=== PATIENT | male | born 1970 | race Caucasian/White ===

== ENCOUNTER 2018-01-11 05:14 | Inpatient (IN) | payer SELFPAY ==
[~2018-01-11] VITALS: Ht 170.2 cm; Wt 90.6 kg
[2018-01-11 06:27] LABS: Basophils # (auto) 0 uL; Basophils % (auto) 0.4 % (0.0-2.0); Eosinophils # (auto) 0 uL; Eosinophils % (auto) 0.1 % (0.0-7.0); Lymphocytes # (auto) 0.9 uL; Lymphocytes % (auto) 7.4 % (10.0-50.0); Mean Corpuscular Hemoglobin 29.6 pg (28.0-32.0); Mean Corpuscular Hgb Conc. 33.3 g/dL (32.0-36.0); Mean Corpuscular Volume 88.8 fL (80.0-100.0); Monocytes # (auto) 0.3 uL; Monocytes % (auto) 2.4 % (0.0-12.0); Neutrophils # (auto) 11.1 uL; Neutrophils % (auto) 89.7 % (37.0-80.0); Nucleated Red Blood Cells % 0.1 %; Platelet Count (auto) 378 10^3/uL (140-450); Red Cell Distribution Width 13.8 % (11.8-14.3); White Blood Cell 12.4 10^3/uL (4.4-10.8)
[2018-01-11 06:39] LABS: Albumin 4.2 g/dL (3.4-5.0); Calcium 9.8 mg/dL (8.5-10.1); Potassium 3.9 mmol/L (3.5-5.1)
[2018-01-11 06:41] LABS: BUN/Creatinine Ratio 18.2
[2018-01-11 06:44] LABS: Bilirubin, Total 0.7 mg/dL (0.2-1.0); Total Protein 7.9 g/dL (6.4-8.2)
[2018-01-11] MEDS ORDERED: PROMETHAZINE HCL 25 MG/ML 1ML IV ONE (08:00)
[2018-01-11] MEDS ORDERED: NALBUPHINE HCL 10 MG/1ml INJECTION IV ONE (08:00)
[2018-01-11] MEDS ORDERED: GASTROGRAFIN 120 ML SOL ONE (09:02)
[2018-01-11 12:11] LABS: Urine Amorphous Crystal MOD /hpf (None Seen); Urine Bacteria FEW /hpf (None Seen); Urine Blood Negative /uL (Negative); Urine Mucus FEW (None Seen); Urine Specific Gravity 1.031 (1.001-1.035); Urine WBC 1 /hpf (0 - 3)
[2018-01-11 12:26] LABS: Alcohol, Urine < 3.0 mg/dL (0-5); Amphetamine Screen, Urine POSITIVE (NEGATIVE); Barbiturate Scree,Urine NEGATIVE (NEGATIVE); Benzodiazephine Screen, Urine NEGATIVE (NEGATIVE); Cannabinoid Screen, Urine NEGATIVE (NEGATIVE); Cocaine Screen, Urine NEGATIVE (NEGATIVE); Opiate Scree,Urine NEGATIVE (NEGATIVE); Phencyclidine Screen, Urine NEGATIVE (NEGATIVE)
[2018-01-12] MEDS ORDERED: NICOTINE 21MG/24 HR TOPICAL PATCH TD ONE (10:15)
[2018-01-12] MEDS ORDERED: MORPHINE SULFATE 4 MG/ML SYR/VIAL IV PRN (10:15)
[2018-01-12] MEDS ORDERED: ONDANSETRON HCL 4 MG/2 ML VIAL IV PRN (10:15)
[2018-01-12] MEDS ORDERED: LORazepam 2MG/ML-1ML VIAL IV PRN (10:15)
[2018-01-12] MEDS ORDERED: PANTOPRAZOLE 40 MG/10 ML VIAL IV ONE (10:15)
[2018-01-12] MEDS ORDERED: LORazepam 2MG/ML-1ML VIAL IV ONE (10:15)
[2018-01-12] MEDS ORDERED: cefTRIAXone 1GM/10ml IVPUSH 10 ML IV ONE (10:15)
[2018-01-12] MEDS: SODIUM CHLORIDE 0.9% 1,000 ML IV SCH ×2 (10:50→18:15)
[2018-01-12 11:09] LABS: Basophils # (auto) 0.1 uL; Basophils % (auto) 0.9 % (0.0-2.0); Eosinophils # (auto) 0.3 uL; Hematocrit 49.5 % (41.0-53.0); Hemoglobin 16.5 g/dL (13.5-17.5); Lymphocytes # (auto) 2.7 uL; Lymphocytes % (auto) 35.5 % (10.0-50.0); Mean Corpuscular Hemoglobin 29.8 pg (28.0-32.0); Mean Corpuscular Hgb Conc. 33.2 g/dL (32.0-36.0); Mean Corpuscular Volume 89.5 fL (80.0-100.0); Monocytes # (auto) 0.7 uL; Monocytes % (auto) 8.9 % (0.0-12.0); Neutrophils # (auto) 3.8 uL; Neutrophils % (auto) 50.7 % (37.0-80.0); Platelet Count (auto) 352 10^3/uL (140-450); Red Blood Cells 5.53 10^6/uL (4.5-5.90); Red Cell Distribution Width 13.9 % (11.8-14.3); White Blood Cell 7.5 10^3/uL (4.4-10.8)
[2018-01-12 11:21] LABS: Albumin 3.7 g/dL (3.4-5.0); BUN/Creatinine Ratio 17.9; Bilirubin, Total 0.7 mg/dL (0.2-1.0); Calcium 8.7 mg/dL (8.5-10.1); Potassium 4.3 mmol/L (3.5-5.1); Total Protein 7.6 g/dL (6.4-8.2)
[2018-01-12 11:23] LABS: Cholesterol 180 mg/dL (< 200); HDL Cholesterol 51 mg/dL (40-59); INR 0.95 (0.9-1.15); LDL Cholesterol 119 mg/dL (< 100); Partial Thromboplastin Time 29.8 sec (22.64-33.71); Prothrombin Time 10.3 sec (9.37-12.3); Triglycerides 101 mg/dL (< 150)
[2018-01-12] MEDS: metroNIDAZOLE 500MG/100ML 100 ML IV SCH ×2 (12:06→20:21)
[2018-01-12 13:00] VITALS: BP 115/61
[2018-01-12] MEDS ORDERED: METOCLOPRAMIDE HCL 5MG/ml INJ 2ml VIAL IV SCH (14:00)
[2018-01-12] MEDS ORDERED: THIAMINE HCL 100 MG/ML 2ML VIAL IV ONE (14:30)
[2018-01-12 17:00] VITALS: BP 114/73
[2018-01-12 22:00] VITALS: BP 110/69
[2018-01-13] MEDS: metroNIDAZOLE 500MG/100ML 100 ML IV SCH (04:04)
[2018-01-13] MEDS: SODIUM CHLORIDE 0.9% 1,000 ML IV SCH ×2 (04:04→09:30)
[2018-01-13 05:00] VITALS: BP 106/63
[2018-01-13 07:11] LABS: Basophils # (auto) 0.1 uL; Eosinophils # (auto) 0.2 uL; Eosinophils % (auto) 3.9 % (0.0-7.0); Hematocrit 46.2 % (41.0-53.0); Lymphocytes # (auto) 1.7 uL; Mean Corpuscular Hemoglobin 29.3 pg (28.0-32.0); Mean Corpuscular Hgb Conc. 32.4 g/dL (32.0-36.0); Mean Corpuscular Volume 90.5 fL (80.0-100.0); Monocytes # (auto) 0.5 uL; Monocytes % (auto) 8.1 % (0.0-12.0); Neutrophils # (auto) 3.6 uL; Nucleated Red Blood Cells % 0.3 %; Platelet Count (auto) 303 10^3/uL (140-450); Red Blood Cells 5.11 10^6/uL (4.5-5.90); Red Cell Distribution Width 13.8 % (11.8-14.3); White Blood Cell 6.1 10^3/uL (4.4-10.8)
[2018-01-13 07:22] LABS: BUN/Creatinine Ratio 21.2; Calcium 8.2 mg/dL (8.5-10.1)
[2018-01-13 08:30] VITALS: BP 102/68
[2018-01-13 08:39] VITALS: BP 102/68
[2018-01-13] MEDS ORDERED: cefTRIAXone 1GM/10ml IVPUSH 10 ML IV SCH (09:00)
[2018-01-13] MEDS: NICOTINE 21MG/24 HR TOPICAL PATCH TD SCH (09:30)
[2018-01-13] MEDS: PANTOPRAZOLE 40 MG/10 ML VIAL IV SCH (09:30)
[2018-01-13] MEDS: THIAMINE HCL 100 MG/ML 2ML VIAL IV SCH (09:31)
[2018-01-13 13:03] VITALS: BP 115/74
[2018-01-13] MEDS ORDERED: ACETAMINOPHEN 650 mg PER 20 mL UD PO PRN (15:15)
[2018-01-13 16:57] VITALS: BP 103/70
[2018-01-13 22:00] VITALS: BP 126/77
[2018-01-14 06:00] VITALS: BP 108/69
[2018-01-14 07:03] LABS: Basophils # (auto) 0.1 uL; Basophils % (auto) 1.1 % (0.0-2.0); Eosinophils # (auto) 0.2 uL; Eosinophils % (auto) 3.9 % (0.0-7.0); Hematocrit 42.3 % (41.0-53.0); Hemoglobin 13.9 g/dL (13.5-17.5); Lymphocytes # (auto) 1.9 uL; Lymphocytes % (auto) 34.1 % (10.0-50.0); Mean Corpuscular Hemoglobin 29.1 pg (28.0-32.0); Mean Corpuscular Hgb Conc. 32.7 g/dL (32.0-36.0); Mean Corpuscular Volume 88.9 fL (80.0-100.0); Monocytes # (auto) 0.5 uL; Monocytes % (auto) 9.6 % (0.0-12.0); Neutrophils # (auto) 2.8 uL; Neutrophils % (auto) 51.3 % (37.0-80.0); Nucleated Red Blood Cells % 0.2 %; Platelet Count (auto) 306 10^3/uL (140-450); Red Blood Cells 4.76 10^6/uL (4.5-5.90); Red Cell Distribution Width 13.6 % (11.8-14.3); White Blood Cell 5.5 10^3/uL (4.4-10.8)
[2018-01-14 07:36] LABS: BUN/Creatinine Ratio 14.5; Calcium 8.6 mg/dL (8.5-10.1)
[2018-01-14 09:00] VITALS: BP 109/56
[2018-01-14] MEDS: THIAMINE HCL 100 MG/ML 2ML VIAL IV SCH (10:00)
[2018-01-14] MEDS: PANTOPRAZOLE 40 MG/10 ML VIAL IV SCH (10:28)
[2018-01-14] MEDS: NICOTINE 21MG/24 HR TOPICAL PATCH TD SCH (10:29)
[2018-01-14 13:00] VITALS: BP 114/63
[2018-01-14 17:00] VITALS: BP 113/73
[2018-01-14 22:00] VITALS: BP 115/74
[2018-01-15 05:15] VITALS: BP 114/64
[2018-01-15 07:16] LABS: Basophils # (auto) 0.1 uL; Basophils % (auto) 1.3 % (0.0-2.0); Eosinophils # (auto) 0.2 uL; Eosinophils % (auto) 3.6 % (0.0-7.0); Lymphocytes # (auto) 2.4 uL; Lymphocytes % (auto) 35.7 % (10.0-50.0); Mean Corpuscular Hemoglobin 29.8 pg (28.0-32.0); Mean Corpuscular Hgb Conc. 33.3 g/dL (32.0-36.0); Mean Corpuscular Volume 89.6 fL (80.0-100.0); Monocytes # (auto) 0.6 uL; Monocytes % (auto) 8.6 % (0.0-12.0); Neutrophils # (auto) 3.5 uL; Neutrophils % (auto) 50.8 % (37.0-80.0); Nucleated Red Blood Cells % 0.1 %; Platelet Count (auto) 303 10^3/uL (140-450); Red Blood Cells 4.69 10^6/uL (4.5-5.90); Red Cell Distribution Width 13.6 % (11.8-14.3); White Blood Cell 6.8 10^3/uL (4.4-10.8)
[2018-01-15 07:24] LABS: BUN/Creatinine Ratio 16.7; Calcium 8.5 mg/dL (8.5-10.1)
[2018-01-15 08:00] VITALS: BP 109/69
[2018-01-15 09:00] VITALS: BP 109/69
[2018-01-15] MEDS: THIAMINE HCL 100 MG/ML 2ML VIAL IV SCH (10:00)
[2018-01-15] MEDS: PANTOPRAZOLE 40 MG/10 ML VIAL IV SCH (10:05)
[2018-01-15] MEDS: NICOTINE 21MG/24 HR TOPICAL PATCH TD SCH (10:07)
== END 2018-01-15 13:25 | disposition home or self-care (01) | DRG 390 ==
LOC: ER 05:15 → OVERFLOW 01-12 05:16 → WEST WING 01-12 11:49
PROVIDERS: ADMIT Internal Medicine; ATTEND Internal Medicine
DX: K56.600 Partial intestinal obstruction, unspecified as to cause (principal); D72.829 Elevated white blood cell count, unspecified; E86.0 Dehydration; E78.5 Hyperlipidemia, unspecified; F15.10 Other stimulant abuse, uncomplicated; F17.210 Nicotine dependence, cigarettes, uncomplicated; I25.10 Atherosclerotic heart disease of native coronary artery without angina pectoris; Z82.49 Family history of ischemic heart disease and other diseases of the circulatory system; Z83.3 Family history of diabetes mellitus; Z80.0 Family history of malignant neoplasm of digestive organs
CPT/HCPCS: 36415; 74018; 74176; 74250; 80048; 80053; 80061; 80307; 81001; 82150; 83605; 83690; 85025; 85610; 85730; 93005; 96374; 96375; C9113; J3490

== ENCOUNTER 2022-01-05 12:29 | Inpatient (IN) | payer MEDICAID ==
[~2022-01-05] VITALS: Ht 170.2 cm; Wt 105.0 kg
[2022-01-05 13:59] LABS: Mean Corpuscular Hgb Conc. 33.4 g/dL (32.0-36.0)
[2022-01-05 14:00] LABS: Basophils # (auto) 0 10 ^3/uL (0-0.2); Basophils % (auto) 0.2 % (0.0-2.0); Eosinophils # (auto) 0.2 10 ^3/uL (0-0.8); Eosinophils % (auto) 1.5 % (0.0-7.0); Hematocrit 39.7 % (41.0-53.0); Hemoglobin 13.3 g/dL (13.5-17.5); Lymphocytes # (auto) 1.8 10 ^3/uL (0.4-5.4); Mean Corpuscular Hemoglobin 28.8 pg (28.0-32.0); Mean Corpuscular Volume 86.4 fL (80.0-100.0); Monocytes # (auto) 0.7 10 ^3/uL (0-1.3); Monocytes % (auto) 7.1 % (0.0-12.0); Neutrophils # (auto) 7.7 10 ^3/uL (1.6-8.6); Neutrophils % (auto) 74.2 % (37.0-80.0); Nucleated Red Blood Cells % 0.1 %; Red Blood Cells 4.59 10^6/uL (4.5-5.90); White Blood Cell 10.4 10^3/uL (4.4-10.8)
[2022-01-05 14:16] LABS: Albumin 2.2 g/dL (3.4-5.0); BUN/Creatinine Ratio 12.2; Calcium 8.8 mg/dL (8.5-10.1); Magnesium 2.1 mg/dL (1.6-2.6); Potassium 4.2 mmol/L (3.5-5.1)
[2022-01-05 14:21] LABS: Bilirubin, Total 0.3 mg/dL (0.2-1.0); Total Protein 7.5 g/dL (6.4-8.2)
[2022-01-05] MEDS ORDERED: KETOROLAC TROMETH 30 MG/ML 1ML VIAL IV ONE (16:00)
[2022-01-05] MEDS ORDERED: IOHEXOL 350 MG/ML 100ML IJ ONE (16:52)
[2022-01-05] MEDS ORDERED: DexAMETHasone SOD PHOS 10MG/1ML VIAL INJ IV ONE (18:45)
[2022-01-05] MEDS ORDERED: HYDROcodone-ACET 5/325MG TAB PO PRN (20:45)
[2022-01-05] MEDS ORDERED: NITROGLYCERIN 0.4 MG SL TAB SL PRN (20:45)
[2022-01-05] MEDS ORDERED: ONDANSETRON HCL 4 MG/2 ML VIAL IV PRN (20:45)
[2022-01-05] MEDS ORDERED: DOCUSATE SOD 100 MG CAP PO PRN (20:45)
[2022-01-05] MEDS ORDERED: MORPHINE SULFATE 4 MG/ML SYR/VIAL IV PRN (20:45)
[2022-01-05] MEDS ORDERED: MORPHINE SULFATE INJECTION 2 MG/ML SYRG IV PRN (20:45)
[2022-01-05] MEDS ORDERED: ACETAMINOPHEN 325 MG TAB PO PRN (20:45)
[2022-01-05 22:00] VITALS: BP 99/63
[2022-01-05] MEDS ORDERED: ENOXAPARIN SOD 100 MG/1 ML SYRINGE SC SCH (22:00)
[2022-01-05 22:58] VITALS: BP 99/63
[2022-01-05] MEDS: ENOXAPARIN SOD 100 MG/1 ML SYRINGE SC SCH (23:25)
[2022-01-05] MEDS: SODIUM CHLORIDE 0.9% 1,000 ML IV SCH (23:26)
[2022-01-06 05:00] VITALS: BP 102/51
[2022-01-06] MEDS: SODIUM CHLORIDE 0.9% 1,000 ML IV SCH ×2 (05:05→06:05)
[2022-01-06 06:00] LABS: Basophils # (auto) 0 10 ^3/uL (0-0.2); Eosinophils # (auto) 0 10 ^3/uL (0-0.8); Red Blood Cells 4.16 10^6/uL (4.5-5.90); Red Cell Distribution Width 13.6 % (11.8-14.3)
[2022-01-06 06:03] LABS: Basophils % (auto) 0.5 % (0.0-2.0); Hematocrit 35.9 % (41.0-53.0); Hemoglobin 12.1 g/dL (13.5-17.5); Lymphocytes # (auto) 1.2 10 ^3/uL (0.4-5.4); Lymphocytes % (auto) 13.6 % (10.0-50.0); Mean Corpuscular Hemoglobin 29.1 pg (28.0-32.0); Mean Corpuscular Hgb Conc. 33.7 g/dL (32.0-36.0); Mean Corpuscular Volume 86.1 fL (80.0-100.0); Monocytes # (auto) 0.5 10 ^3/uL (0-1.3); Monocytes % (auto) 5.2 % (0.0-12.0); Neutrophils # (auto) 7.2 10 ^3/uL (1.6-8.6); Neutrophils % (auto) 80.7 % (37.0-80.0); White Blood Cell 8.9 10^3/uL (4.4-10.8)
[2022-01-06 06:11] LABS: Potassium 4.7 mmol/L (3.5-5.1)
[2022-01-06 06:17] LABS: Albumin 2.1 g/dL (3.4-5.0); BUN/Creatinine Ratio 19.8
[2022-01-06 06:19] LABS: Bilirubin, Total 0.4 mg/dL (0.2-1.0); Total Protein 7.1 g/dL (6.4-8.2)
[2022-01-06 08:00] VITALS: BP 95/57
[2022-01-06] MEDS ORDERED: FAMOTIDINE 20 MG TAB PO SCH (10:00)
[2022-01-06] MEDS: ENOXAPARIN SOD 100 MG/1 ML SYRINGE SC SCH ×2 (10:06→22:11)
[2022-01-06] MEDS: NICOTINE 14 MG/24HR TOPICAL PATCH TD SCH (10:06)
[2022-01-06 12:00] VITALS: BP 100/57
[2022-01-06 16:00] VITALS: BP 117/53
[2022-01-06 22:00] VITALS: BP 91/55
[2022-01-06] MEDS: HYDROcodone-ACET 5/325MG TAB PO PRN (22:25)
[2022-01-06] MEDS ORDERED: MORPHINE SULFATE 4 MG/ML SYR/VIAL IV PRN (22:30)
[2022-01-06] MEDS ORDERED: ONDANSETRON HCL 4 MG/2 ML VIAL IV PRN (22:30)
[2022-01-06] MEDS ORDERED: ACETAMINOPHEN 325 MG TAB PO PRN (22:30)
[2022-01-06] MEDS ORDERED: MORPHINE SULFATE INJECTION 2 MG/ML SYRG IV PRN (22:30)
[2022-01-06] MEDS ORDERED: NITROGLYCERIN 0.4 MG SL TAB SL PRN (22:30)
[2022-01-06] MEDS ORDERED: DOCUSATE SOD 100 MG CAP PO PRN (22:30)
[2022-01-07 05:00] VITALS: BP 111/68
[2022-01-07] MEDS: HYDROcodone-ACET 5/325MG TAB PO PRN ×2 (07:26→20:08)
[2022-01-07 08:53] VITALS: BP 113/61
[2022-01-07] MEDS: FAMOTIDINE 20 MG TAB PO SCH (09:29)
[2022-01-07] MEDS: ENOXAPARIN SOD 100 MG/1 ML SYRINGE SC SCH ×2 (09:29→21:25)
[2022-01-07] MEDS: NICOTINE 14 MG/24HR TOPICAL PATCH TD SCH (09:31)
[2022-01-07] MEDS ORDERED: DexAMETHasone SOD PHOS 10MG/1ML VIAL INJ IV SCH ×2 (10:00)
[2022-01-07 12:15] VITALS: BP 108/69
[2022-01-07 23:02] VITALS: BP 109/66
[2022-01-08 04:42] VITALS: BP 85/52
[2022-01-08 07:19] LABS: Cholesterol 162 mg/dL (< 200); HDL Cholesterol 30 mg/dL (40-59); LDL Cholesterol 124 mg/dL (< 100); Triglycerides 91 mg/dL (< 150)
[2022-01-08 08:54] VITALS: BP 111/68
[2022-01-08] MEDS: FAMOTIDINE 20 MG TAB PO SCH (09:38)
[2022-01-08] MEDS: ENOXAPARIN SOD 100 MG/1 ML SYRINGE SC SCH (09:38)
[2022-01-08] MEDS: NICOTINE 14 MG/24HR TOPICAL PATCH TD SCH (09:38)
[2022-01-08] MEDS: HYDROcodone-ACET 5/325MG TAB PO PRN (09:40)
[2022-01-08 13:00] VITALS: BP 93/55
[2022-01-08] MEDS ORDERED: DOXYCYCLINE 100 MG TAB/CAP PO ONE (13:00)
[2022-01-08] MEDS ORDERED: DOX100T PO (15:33)
[2022-01-08] MEDS ORDERED: NICO14DI9 TD (15:33)
[2022-01-08] MEDS ORDERED: IBUP600T27 PO (15:33)
[2022-01-08] MEDS ORDERED: BACL20TA PO (15:33)
[2022-01-08 17:00] VITALS: BP 107/74
[2022-01-08] MEDS ORDERED: DOXYCYCLINE 100 MG TAB/CAP PO SCH (22:00)
== END 2022-01-08 19:50 | disposition home or self-care (01) | DRG 723 ==
LOC: ER 12:29 → TELE 20:31 → TELE-EAST 21:40 → EAST 01-08 12:59
PROVIDERS: ADMIT Internal Medicine; ATTEND Internal Medicine
DX: B34.9 Viral infection, unspecified (principal); E88.09 Other disorders of plasma-protein metabolism, not elsewhere classified; D75.839 Thrombocytosis, unspecified; E66.01 Morbid (severe) obesity due to excess calories; M54.2 Cervicalgia; M54.9 Dorsalgia, unspecified; R53.81 Other malaise; Z20.822 Contact with and (suspected) exposure to COVID-19; Z68.36 Body mass index [BMI] 36.0-36.9, adult; Z83.3 Family history of diabetes mellitus; Z80.9 Family history of malignant neoplasm, unspecified; F17.210 Nicotine dependence, cigarettes, uncomplicated; Z82.49 Family history of ischemic heart disease and other diseases of the circulatory system
CPT/HCPCS: 36415; 36600; 71045; 71275; 78582; 80053; 80061; 82550; 82805; 83735; 83880; 84484; 85025; 85379; 85652; 86141; 86738; 87040; 87278; 87804; 93005; 93306; 93970; 96374; 96375; 97163; G0378; J1100; J1885

== ENCOUNTER 2022-01-22 04:34 | Emergency (ER) | payer MEDICAID ==
[~2022-01-22] VITALS: Ht 175.3 cm; Wt 77.1 kg
[~2022-01-22 04:34] MED LIST: BACL20TA PO; DOX100T PO; IBUP600T27 PO; NICO14DI9 TD
[2022-01-22 08:26] LABS: Basophils # (auto) 0.1 10 ^3/uL (0-0.2); Eosinophils # (auto) 0.2 10 ^3/uL (0-0.8); Monocytes # (auto) 0.8 10 ^3/uL (0-1.3); Monocytes % (auto) 9.9 % (0.0-12.0); Nucleated Red Blood Cells % 0.1 %
[2022-01-22 08:27] LABS: Basophils % (auto) 0.9 % (0.0-2.0); Hematocrit 39.3 % (41.0-53.0); Hemoglobin 13.1 g/dL (13.5-17.5); Lymphocytes # (auto) 1.9 10 ^3/uL (0.4-5.4); Lymphocytes % (auto) 23.2 % (10.0-50.0); Mean Corpuscular Hemoglobin 28.5 pg (28.0-32.0); Mean Corpuscular Hgb Conc. 33.4 g/dL (32.0-36.0); Mean Corpuscular Volume 85.4 fL (80.0-100.0); Neutrophils # (auto) 5.2 10 ^3/uL (1.6-8.6); Red Blood Cells 4.61 10^6/uL (4.5-5.90); Red Cell Distribution Width 13.7 % (11.8-14.3); White Blood Cell 8.1 10^3/uL (4.4-10.8)
[2022-01-22 08:30] LABS: Albumin 2.4 g/dL (3.4-5.0); Calcium 8.9 mg/dL (8.5-10.1); Potassium 4.2 mmol/L (3.5-5.1)
[2022-01-22 08:34] LABS: BUN/Creatinine Ratio 17.2; Bilirubin, Total 0.2 mg/dL (0.2-1.0)
[2022-01-22] MEDS ORDERED: IOHEXOL 350 MG/ML 100ML IJ ONE (08:42)
[2022-01-22 10:41] LABS: Urine Bacteria FEW /hpf (None Seen); Urine Blood Negative /uL (Negative); Urine Mucus FEW (None Seen); Urine Specific Gravity 1.043 (1.001-1.035); Urine WBC <1 /hpf (0 - 3)
[2022-01-22 11:12] LABS: INR 0.99 (0.9-1.15); Partial Thromboplastin Time 30.3 sec (23.6-33.0)
[2022-01-22] MEDS ORDERED: IBUPROFEN 800 MG TAB PO ONE (12:30)
[2022-01-22 14:58] VITALS: BP 121/75
== END 2022-01-22 15:05 | disposition home or self-care (01) ==
LOC: EDBD 04:34 → ER 04:34
DX: R07.9 Chest pain, unspecified (principal); F17.210 Nicotine dependence, cigarettes, uncomplicated; Z79.1 Long term (current) use of non-steroidal anti-inflammatories (NSAID); Z79.2 Long term (current) use of antibiotics; Z79.899 Other long term (current) drug therapy
CPT/HCPCS: 36415; 71045; 71275; 80053; 81001; 83880; 84484; 85025; 85610; 85730; 93005; 99285; Q9967

== ENCOUNTER 2022-05-06 06:25 | Emergency (ER) | payer MEDICAID ==
[~2022-05-06] VITALS: Ht 170.2 cm; Wt 104.3 kg
[2022-05-06 07:19] LABS: Basophils # (auto) 0.1 10 ^3/uL (0-0.2); Basophils % (auto) 1.4 % (0.0-2.0); Eosinophils # (auto) 0.1 10 ^3/uL (0-0.8); Eosinophils % (auto) 1.6 % (0.0-7.0); Hematocrit 43.5 % (41.0-53.0); Hemoglobin 14.2 g/dL (13.5-17.5); Lymphocytes # (auto) 2.8 10 ^3/uL (0.4-5.4); Lymphocytes % (auto) 31.4 % (10.0-50.0); Mean Corpuscular Hemoglobin 27.9 pg (28.0-32.0); Mean Corpuscular Hgb Conc. 32.7 g/dL (32.0-36.0); Mean Corpuscular Volume 85.6 fL (80.0-100.0); Monocytes % (auto) 10.9 % (0.0-12.0); Neutrophils # (auto) 4.9 10 ^3/uL (1.6-8.6); Neutrophils % (auto) 54.7 % (37.0-80.0); Nucleated Red Blood Cells % 0.1 %; Red Blood Cells 5.08 10^6/uL (4.5-5.90); Red Cell Distribution Width 16.6 % (11.8-14.3); White Blood Cell 8.9 10^3/uL (4.4-10.8)
[2022-05-06 07:34] LABS: Albumin 2.4 g/dL (3.4-5.0); Calcium 8.5 mg/dL (8.5-10.1); Potassium 4.3 mmol/L (3.5-5.1)
[2022-05-06 07:37] LABS: BUN/Creatinine Ratio 11.2; Bilirubin, Total 0.4 mg/dL (0.2-1.0); Total Protein 8.4 g/dL (6.4-8.2)
[2022-05-06 10:01] VITALS: BP 140/92
== END 2022-05-06 10:00 | disposition home or self-care (01) ==
LOC: ER 06:25
DX: R07.89 Other chest pain (principal); E43 Unspecified severe protein-calorie malnutrition; F17.210 Nicotine dependence, cigarettes, uncomplicated; Z68.36 Body mass index [BMI] 36.0-36.9, adult
CPT/HCPCS: 36415; 71045; 80053; 84484; 85025; 93005

== ENCOUNTER 2023-02-10 17:36 | Emergency (ER) | payer MEDICAID ==
[~2023-02-10] VITALS: Ht 170.2 cm; Wt 91.7 kg
[2023-02-10 17:46] VITALS: BP 125/79
== END 2023-02-11 | disposition left against medical advice (07) ==
LOC: ER 17:36
DX: S80.262A Insect bite (nonvenomous), left knee, initial encounter (principal); Z53.21 Procedure and treatment not carried out due to patient leaving prior to being seen by health care provider; W57.XXXA Bitten or stung by nonvenomous insect and other nonvenomous arthropods, initial encounter; Y93.89 Activity, other specified; Y92.89 Other specified places as the place of occurrence of the external cause; Y99.8 Other external cause status

== ENCOUNTER 2024-09-05 20:35 | Inpatient (IN) | payer SELFPAY ==
[~2024-09-05] VITALS: Ht 170.2 cm; Wt 78.8 kg
[~2024-09-05 20:35] MED LIST changes: +IBUP-1454 PO; -IBUP600T27 PO
--- NOTE | 2024-09-05 20:52 | ECG ---
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
--- NOTE | 2024-09-05 20:53 | ED.PDOC ---
HPI Comments 54-year-old male with PMHx PE, MA presents with a chief complaint of chest pain x onset 3 hours ago with associated SOB. Patient states that his chest pain is localized to his sternal chest, non-radiating, describes as sharp. Patient mentions that he is a smoker and feels SOB right now, "like I can't catch my breath". EKG in triage shows Acute MA. EKG was sent to on-call STEMI provider and was confirmed. Code STEMI was activated. No other symptoms or modifying factors present at this time. Chief Complaint: Chest Pain Time Seen by MD: 20:42 Primary Care Provider: UNKNOWN Reviewed Notes: Medications, Allergies Allergies: Coded Allergies: NO KNOWN ALLERGIES (Unverified , 01/11/18) Home Meds Active Scripts Ibuprofen (Ibuprofen) 600 Mg Tab, 1 TAB PO TIDP PRN, #30 TAB 0 Refills TAKE WITH FOOD Prov:CLAUDIA LEVI MD 01/08/22 Baclofen (Baclofen) 20 Mg Tab, 1 TAB PO TIDP PRN, #20 TAB 0 Refills NEEDED FOR MUSCLE PAIN AND SPASM Prov:CLAUDIA LEVI MD 01/08/22 Nicotine (Nicotine) 14 Mg/24 Hr Dis, 1 PATCH TD DAILY for 14 Days, #14 DIS Prov:CLAUDIA LEVI MD 01/08/22 Doxycycline Monohydrate (Doxycycline Monohydrate) 100 Mg Tab, 100 MG PO Q12HR for 7 Days, #14 TAB Prov:CLAUDIA LEVI MD 01/08/22 Information Source: Patient Mode of Arrival: Ambulatory Severity: Moderate Timing: Hours Duration: Since onset Prehospital treatment: None Location: Chest (L) Radiation: No Radiation Quality: Sharp Onset: At Rest Cardiac Risk Factors: Smoker PE Risk Factors: None History of: Similar pain in past, MA Past Medical History PAST MEDICAL HISTORY: PE Surgical History: Denies all surgeries Family History Family History: Unknown Social History Smoker: Cigarettes Alcohol: Denies ETOH Use Drugs: Denies Drug Use Lives In: Home Constitutional: denies: chills, diaphoresis, fatigue, fever, malaise, sweats, weakness, others EENTM: denies: blurred vision, double vision, ear bleeding, ear discharge, ear drainage, ear pain, ear ringing, eye pain, eye redness, hearing loss, mouth pain, mouth swelling, nasal discharge, nose bleeding, nose congestion, nose pain, photophobia, tearing, throat pain, throat swelling, voice changes, others Respiratory: reports: shortness of breath; denies: cough, hemoptysis, orthopnea, SOB at rest, SOB with excertion, stridor, wheezing, others Cardiovascular: reports: chest pain; denies: dizzy spells, diaphoresis, Dyspnea on exertion, edema, irregular heart beat, left arm pain, lightheadedness, palpitations, PND, syncope, others Gastrointestinal: denies: abdomen distended, abdominal pain, blood streaked bowels, constipated, diarrhea, dysphagia, difficulty swallowing, hematemesis, melena, nausea, poor appetite, poor fluid intake, rectal bleeding, rectal pain, vomiting, others Genitourinary: denies: burning, dysuria, flank pain, frequency, hematuria, incontinence, penile discharge, penile sore, pain, testicle pain, testicle swelling, urgency, others Neurological: denies: dizziness, fainting, headache, left sided numbness, left sided weakness, numbness, paresthesia, pre-existing deficit, right sided numbness, right sided weakness, seizure, speech problems, tingling, tremors, weakness, others Musculoskeletal: denies: back pain, gout, joint pain, joint swelling, muscle pain, muscle stiffness, neck pain, others Integumetry: denies: bruises, change in color, change in hair/nails, dryness, laceration, lesions, lumps, rash, wounds, others Allergic/Immunocompromised: denies: Difficulty Healing, Frequent Infections, Hives, Itching, others Hematologic/Lymphatic: denies: anemia, blood clots, easy bleeding, easy bruising, swollen glands, others Endocrine: denies: excessive hunger, excessive sweating, excessive thirst, excessive urination, flushing, intolerance to cold, intolerance to heat, unexplained weight gain, unexplained weight loss, others Psychiatric: denies: anxiety, bipolar disorder, depression, hopeless, panic disorder, schizophrenia, sleepless, suicidal, others All Other Systems: Reviewed and Negative Physical Exam General Appearance: Moderate Distress, Normal HEENT: Normal ENT Inspection Neck: Full Range of Motion, Normal Inspection Respiratory: Lungs Clear, Normal Breath Sounds, Respiratory Distress Cardiovascular: No Edema, No JVD, Regular Rate/Rhythm Breast Exam: Deferred Gastrointestinal: Non Tender, Soft Genitalia: Deferred Pelvic: Deferred Rectal: Deferred Extremities: Normal inspection, Normal range of motion, Non-tender, No pedal edema Musculoskeletal : Apperance: Normal Neurologic: Alert, No Motor Deficits, Normal Affect, Normal Mood, No Sensory Deficits Cerebellar Function: NOT DONE Reflexes: NOT DONE Skin: Dry, Normal Color, Warm Lymphatic: NOT DONE EKG EKG : Comments Sinus tach, rate 101, normal intervals, left axis deviation, Q-waves with ST elevation in inferior leads ST depression in leads 1 and aVL consistent with acute inferior MA Was a procedure done? Was a procedure done?: No CP Differential Dx Differential Diagnosis: Angina, Anxiety / Panic Attack, Heart Failure, MA, Pulmonary Embolus Differential Diagnosis: CHF Differential Diagnosis: Aortic dissection, Chest Wall Pain, Gastritis, Pericarditis, Pneumonia, Pneumothorax X-Ray, Labs, Meds, VS Vital Signs Date Time Temp Pulse Resp B/P (MAP) Pulse Ox O2 Delivery O2 Flow Rate FiO2 09/06/24 00:15 80 17 117/86 (96) 97 09/06/24 00:00 98.2 82 16 130/90 (103) 97 98.2 09/05/24 23:45 78 21 127/91 (103) 97 09/05/24 23:30 77 21 120/82 (95) 97 09/05/24 23:15 97.6 75 19 123/88 (100) 97 97.6 09/05/24 21:06 131/95 09/05/24 20:40 101 09/05/24 20:40 98.4 105 24 131/100 (110) 95 Lab Test 09/05/24 21:00 09/05/24 20:46 Range/Units Prothrombin Time 9.9 9.3-11.8 sec Prothrombin Time INR 0.93 0.9-1.15 Activated Partial Thromboplast Time 28.0 24.5-34.5 SEC White Blood Count 10.4 4.4-10.8 10^3/uL Red Blood Count 5.30 4.5-5.90 10^6/uL Hemoglobin 16.1 13.5-17.5 g/dL Hematocrit 49.0 41.0-53.0 % Mean Corpuscular Volume 92.4 80.0-100.0 fL Mean Corpuscular Hemoglobin 30.4 28.0-32.0 pg Mean Corpuscular Hemoglobin Concent 32.9 32.0-36.0 g/dL Red Cell Distribution Width 14.3 11.8-14.3 % Platelet Count 279 140-450 10^3/uL Mean Platelet Volume 7.0 6.9-10.8 fL Neutrophils (%) (Auto) 59.6 37.0-80.0 % Lymphocytes (%) (Auto) 28.7 10.0-50.0 % Monocytes (%) (Auto) 10.0 0.0-12.0 % Eosinophils (%) (Auto) 1.3 0.0-7.0 % Basophils (%) (Auto) 0.4 0.0-2.0 % Neutrophils # (Auto) 6.2 1.6-8.6 10 ^3/uL Lymphocytes # (Auto) 3.0 0.4-5.4 10 ^3/uL Monocytes # (Auto) 1.0 0-1.3 10 ^3/uL Eosinophils # (Auto) 0.1 0-0.8 10 ^3/uL Basophils # (Auto) 0 0-0.2 10 ^3/uL Nucleated Red Blood Cells 0.3 % Sodium Level 135 L 136-145 mmol/L Potassium Level 4.5 3.5-5.1 mmol/L Chloride Level 106 98-107 mmol/L Carbon Dioxide Level 24 20-31 mmol/L Anion Gap 5 5-15 Blood Urea Nitrogen 7 L 9-23 mg/dL Creatinine 0.98 0.700-1.30 mg/dL Glomerular Filtration Rate Calc 92 >90 mL/min BUN/Creatinine Ratio 7.1 L 10.0-20.0 Serum Glucose 100 74-106 mg/dL Calcium Level 9.9 8.7-10.4 mg/dL Troponin I High Sensitivity 89267 *H </=54 ng/L B-Type Natriuretic Peptide 166.64 0-100 pg/mL Current Medications Medications (Trade) Dose Ordered Sig/Susannah Route Start Time Stop Time Status Last Admin Aspirin 325 mg ONCE ONCE PO 09/05/24 21:00 09/05/24 21:01 DC 09/05/24 21:06 Nitroglycerin (Nitro-Bid) 1 pkg ONCE ONCE TD 09/05/24 21:00 09/05/24 21:01 DC 09/05/24 21:06 PROCEDURE(s): CXRP - CHEST PORTABLE REASON: cp ORDER NUMBER(s): [id number], ACCESSION NUMBER(s): [id number] EXAM: XY CHEST PORTABLE CLINICAL HISTORY: cp TECHNIQUE: Single AP view of the chest WID: COMPARISON: CHEST PORTABLE on DOS: 05/06/22 FINDINGS: Lines and tubes: Defibrillator pad projects over the left chest. Chest: The heart size and pulmonary vasculature is within normal limits. No pleural effusion, pneumothorax, or consolidation. The osseous structures are grossly intact. IMPRESSION: No acute cardiopulmonary abnormality. X-Ray, Labs, Meds, VS Comment 54-year-old male with a history of PE complaining of chest pain and shortness a breath Vitals unremarkable Exam remarkable for respiratory distress EKG sinus rhythm, ST-elevation with Q-waves in inferior leads with ST depression in lateral leads consistent with acute MA Chest x-ray unremarkable CBC unremarkable, basic metabolic panel remarkable for sodium 134, coag panel unremarkable Troponin 49936 BNP [address] 66.[address] Hernandez on-call for STEMI. EKG was reviewed and code STEMI was activated. Patient was treated with the following in the ED: Aspirin 325 mg p.o., nitro bid 1 in to chest wall On re-evaluation, pain was improving, vitals were stable. Patient transferred to labor custodian in stable condition. Time of 1ST Reevaluation: 21:12 Reevaluation 1ST: Unchanged Patient Education/Counseling: Diagnosis, Treatment, Prognosis Family Education/Counseling: No Family Present Departure 1 Departure Time of Disposition: 21:42 Impression: Primary Impression: STEMI (ST elevation myocardial infarction) Qualified Codes: I21.11 - ST elevation (STEMI) myocardial infarction involving right coronary artery Disposition: ADMITTED INPATIENT Admit to: [facility] Condition: Guarded Critical Care Note Critical Care Time?: No Stability Stability form required: No Heart Score Heart Score: Heart Score Response (Comments) Value History Moderate Suspicious [address]-Deviation 2 Age 45-64 1 Risk Factors No known risk factors 0 Troponin >3 x's Normal limit 2 Total 6 I personally scribed for ALESSIA MCINTOSH MD ([email or web address]) on 09/05/24 at 20:53. Electronically submitted by Saravanan Medina ([email or web address]). ALESSIA MCINTOSH MD Sep 05, 2024 20:53
[2024-09-05 21:03] LABS: Basophils # (auto) 0 10 ^3/uL (0-0.2); Basophils % (auto) 0.4 % (0.0-2.0); Eosinophils # (auto) 0.1 10 ^3/uL (0-0.8); Eosinophils % (auto) 1.3 % (0.0-7.0); Hemoglobin 16.1 g/dL (13.5-17.5); Lymphocytes % (auto) 28.7 % (10.0-50.0); Mean Corpuscular Hemoglobin 30.4 pg (28.0-32.0); Mean Corpuscular Hgb Conc. 32.9 g/dL (32.0-36.0); Mean Corpuscular Volume 92.4 fL (80.0-100.0); Neutrophils # (auto) 6.2 10 ^3/uL (1.6-8.6); Neutrophils % (auto) 59.6 % (37.0-80.0); Nucleated Red Blood Cells % 0.3 %; Platelet Count (auto) 279 10^3/uL (140-450); Red Cell Distribution Width 14.3 % (11.8-14.3); White Blood Cell 10.4 10^3/uL (4.4-10.8)
[2024-09-05] MEDS: ASPirin 325 MG TAB PO ONE (21:06)
[2024-09-05] MEDS: NITROGLYCERIN 2% OINT 1GM PKG TD ONE (21:06)
[2024-09-05] MEDS: IODIXANOL 320MG/ML 100ML BTL IV ONE ×3 (21:23→22:41)
[2024-09-05] MEDS: LIDOCAINE 2%HCL (LOCAL ANESTH.) INJ 20ML MDV ONE (21:23)
[2024-09-05 21:26] LABS: Chloride 106 mmol/L (98-107); Potassium 4.5 mmol/L (3.5-5.1); Sodium 135 mmol/L (136-145)
[2024-09-05 21:27] LABS: Anion Gap 5 (5-15); Carbon Dioxide 24 mmol/L (20-31)
[2024-09-05 21:28] LABS: Calcium 9.9 mg/dL (8.7-10.4)
[2024-09-05 21:32] LABS: Glucose 100 mg/dL (74-106)
[2024-09-05 21:33] LABS: BUN/Creatinine Ratio 7.1 (10.0-20.0); Blood Urea Nitrogen 7 mg/dL (9-23)
[2024-09-05 21:34] LABS: INR 0.93 (0.9-1.15); Prothrombin Time 9.9 sec (9.3-11.8)
[2024-09-05] MEDS: MIDAZOLAM HCL 2MG/2ML 2ml VIAL (1mg/ml) ONE (21:39)
[2024-09-05] MEDS: VERAPAMIL 2.5MG/ML INJ 2ML VIAL IV ONE (21:39)
[2024-09-05] MEDS: fentaNYL CITRATE 100 MCG/2 ML VL ONE (21:39)
[2024-09-05] MEDS: ANGIOMAX 250 MG VIAL IV ONE ×2 (21:39→22:37)
[2024-09-05] MEDS: HEPARIN SODIUM (PORCINE) 5000 UNITS/ML 1ML VIAL ONE (21:39)
[2024-09-05] MEDS: SODIUM CHL 0.9% 50 ML ONE ×2 (21:40→22:37)
--- NOTE | 2024-09-05 21:42 | DVH ---
EXAM: XY CHEST PORTABLE CLINICAL HISTORY: cp TECHNIQUE: Single AP view of the chest WID: COMPARISON: CHEST PORTABLE on DOS: 05/06/22 FINDINGS: Lines and tubes: Defibrillator pad projects over the left chest. Chest: The heart size and pulmonary vasculature is within normal limits. No pleural effusion, pneumothorax, or consolidation. The osseous structures are grossly intact. IMPRESSION: No acute cardiopulmonary abnormality.
[2024-09-05] MEDS: ATROPINE SULF 1 MG/10ml SYR ONE (21:55)
[2024-09-05] MEDS: EPTIFIBATIDE INJ (2MG/ML) 10ML VIAL IV ONE ×2 (22:10→22:21)
[2024-09-05] MEDS: methylPREDNISolone SOD SUCC 125 MG/2 ML VL ONE (22:32)
[2024-09-05] MEDS: CLOPIDOGREL BISULFATE 75 MG TAB ONE (22:55)
[2024-09-05 23:15] VITALS: BP 123/88; PULSE 75; RESP 19; TEMP 97.6; O2SAT 97
--- NOTE | 2024-09-05 23:15 | DVHINCON2 ---
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 He describes a pressure-like sensation in the center of the chest that he can not catch his breath anymore. He is a heavy smoker, he denied history of diabetes mellitus or hyperlipidemia. However he has a family history of coronary artery disease. As well as diabetes mellitus. EKG in the emergency room shows ST elevations in two three AVF with Q-wave. Indicating likely a subacute myocardial infarction. Given patient's symptoms and EKG changes he was rushed to the flue dust laborer for primary PCI to the culprit vessel Past Medical History History of pulmonary embolism a couple units ago. Past Surgical History Twelve point review of system was unremarkable Family History: Cardiovascular disease Grandfather ( from heart attack) G8 BROTHER Colon cancer G8 FATHER Diabetes mellitus G8 MOTHER FH: cancer Hypertension G8 BROTHER Allergies: Coded Allergies: NO KNOWN ALLERGIES (Unverified , 01/11/18) Home Meds Active Scripts Ibuprofen (Ibuprofen) 600 Mg Tab, 1 TAB PO TIDP PRN, #30 TAB 0 Refills TAKE WITH FOOD Prov:CLAUDIA LEVI MD 01/08/22 Baclofen (Baclofen) 20 Mg Tab, 1 TAB PO TIDP PRN, #20 TAB 0 Refills NEEDED FOR MUSCLE PAIN AND SPASM Prov:CLAUDIA LEVI MD 01/08/22 Nicotine (Nicotine) 14 Mg/24 Hr Dis, 1 PATCH TD DAILY for 14 Days, #14 DIS Prov:CLAUDIA LEVI MD 01/08/22 Doxycycline Monohydrate (Doxycycline Monohydrate) 100 Mg Tab, 100 MG PO Q12HR for 7 Days, #14 TAB Prov:CLAUDIA LEVI MD 01/08/22 Vital Signs Vital Signs Date Time Temp Pulse Resp B/P (MAP) Pulse Ox O2 Delivery O2 Flow Rate FiO2 09/05/24 21:06 131/95 09/05/24 20:40 101 09/05/24 20:40 98.4 24 95 Physical Exam Patient looked anxious, normal vitals with heart rate of 88 blood pressure was 1 40/85 with no radial radial or radial femoral delay. Has normal versus other SI with audible murmur he has good symmetrical peripheral pulses. No radial radial or radial femoral delay. His overall neurological examination is grossly block. We will decrease air entry in both lung romero. Labs/Diagnostic Data Labs Test 09/05/24 21:00 09/05/24 20:46 Range/Units Prothrombin Time 9.9 9.3-11.8 sec Prothrombin Time INR 0.93 0.9-1.15 Activated Partial Thromboplast Time 28.0 24.5-34.5 SEC White Blood Count 10.4 4.4-10.8 10^3/uL Red Blood Count 5.30 4.5-5.90 10^6/uL Hemoglobin 16.1 13.5-17.5 g/dL Hematocrit 49.0 41.0-53.0 % Mean Corpuscular Volume 92.4 80.0-100.0 fL Mean Corpuscular Hemoglobin 30.4 28.0-32.0 pg Mean Corpuscular Hemoglobin Concent 32.9 32.0-36.0 g/dL Red Cell Distribution Width 14.3 11.8-14.3 % Platelet Count 279 140-450 10^3/uL Mean Platelet Volume 7.0 6.9-10.8 fL Neutrophils (%) (Auto) 59.6 37.0-80.0 % Lymphocytes (%) (Auto) 28.7 10.0-50.0 % Monocytes (%) (Auto) 10.0 0.0-12.0 % Eosinophils (%) (Auto) 1.3 0.0-7.0 % Basophils (%) (Auto) 0.4 0.0-2.0 % Neutrophils # (Auto) 6.2 1.6-8.6 10 ^3/uL Lymphocytes # (Auto) 3.0 0.4-5.4 10 ^3/uL Monocytes # (Auto) 1.0 0-1.3 10 ^3/uL Eosinophils # (Auto) 0.1 0-0.8 10 ^3/uL Basophils # (Auto) 0 0-0.2 10 ^3/uL Nucleated Red Blood Cells 0.3 % Sodium Level 135 L 136-145 mmol/L Potassium Level 4.5 3.5-5.1 mmol/L Chloride Level 106 98-107 mmol/L Carbon Dioxide Level 24 20-31 mmol/L Anion Gap 5 5-15 Blood Urea Nitrogen 7 L 9-23 mg/dL Creatinine 0.98 0.700-1.30 mg/dL Glomerular Filtration Rate Calc 92 >90 mL/min BUN/Creatinine Ratio 7.1 L 10.0-20.0 Serum Glucose 100 74-106 mg/dL Calcium Level 9.9 8.7-10.4 mg/dL Troponin I High Sensitivity 35237 *H </=54 ng/L B-Type Natriuretic Peptide 166.64 0-100 pg/mL Assessment inferior ST-elevation myocardial infarction likely subacute leaving the presence of Q-wave all the time of presentation. Cord stimulator activated by she was rushed to the flue dust laborer for emergency PCI to the right coronary artery. Total critical time spent with patient 135 minutes Problems(with codes): (1) Tachycardia (2) Chest pain (3) Needs smoking cessation education (4) Family history of diabetes mellitus (5) Family history of colon cancer (6) Family history of cardiovascular disease Plan/Recommendation Patient needs to be rushed to the flue dust laborer for primary PCI he will receive loading dose L4 symptoms 2 mg of aspirin in addition to the 100 mg of Plavix and 4000 of heparin. Plan discussed with: Patient Date of Service: Sep 05, 2024 Billing Provider: LIMA MCCLURE MD Common Visit Codes: 15564-[id number] CARE 30-74 MIN LIMA MCCLURE MD Sep 05, 2024 23:15
[2024-09-05 23:30] VITALS: BP 120/82; PULSE 77; RESP 21; O2SAT 97
--- NOTE | 2024-09-05 23:37 | DVHOP2 ---
Operative Report -Cardiology Report Details Date: 09/05/24 Preop Diagnosis: Acute inferior ST-elevation myocardial infarction Postop Diagnosis: Patient has totally occluded proximal to mid right coronary artery. Lightheaded coupled with the patient presentation. Patient underwent primary PCI of the right coronary artery with single drug-eluting stent. Procedure was very challenging due to vertical takeoff of the right coronary artery with stents have tortuosity. Multiple guiding catheter exchanges were made we had difficulty advancing the. Number as well as the med with lobectomy catheters eventually we will angiogram on intracoronary to try to reduce thrombus burden. Finally patient was successfully stented using 3.5 x 38 drug-eluting stent with excellent final result. Patient has also a staged procedure that was done at the same set up you to severe tight stenosis of proximal LAD single stent of the 5 x 15 was used with excellent final result. Surgeon: Jocelin Hernandez MD Anesthesiologist: Conscious sedation was at 25 mcg of fentanyl as well as 1 mg of the midazolam. This was given under the supervision of myself as well as the attending nurses. Patient was monitored for total of 135 minutes without obvious complication. Anesthesia: Local Consent: The patient was informed of the risks and benefits of the procedure. These in clude but are not limited to complications of anesthesia, postoperative infection, incomplete relief of symptoms, recurrence of symptoms, damage to blood vessels, nerves and tendons, deep venous thrombosis, pulmonary embolism and possible need for repeat surgery in the future. Indications for Surgery: This is a 54-year-old gentleman with no past history apart from history of pulmonary embolism a couple years ago. He presented to emergency room complaining of crushing chest pain with a past 3 hours prior to his presentation. He described having difficulty catching his breath and then he felt central heaviness in his chest before he was rushed to the emergency room. In the emergency room he was found to have acute inferior ST-elevation myocardial infarction involving two three and AVF leads, there was Q-wave across these leads indicating subacute presentation. Code STEMI was activated and patient was rushed to the helper animal laboratory for emergency PCI of the culprit vessel. Patient denies history of diabetes mellitus, hypertension hyperlipidemia, has a family history of diabetes mellitus as well as called cancer. Name of Procedure Performed 1. Ultrasound-guided right femoral arterial access. 2. Selective right and left carotid angiography with rising right radial approach: 3. Primary PCI of the culprit right coronary artery using single drug-eluting stent. 4. Bail-out administration of Integrilin intracoronary due to large clot burden and difficulty to advance the manual thrombectomy devices. 5. Conscious sedation using 25 mcg of fentanyl as well as the mg of IV midazolam. 6. Staged procedure of proximal to mid LAD stenosis using single drug-eluting stent 7. Closure of the right femoral arteriotomy side using six Guyanese Angio-Seal. Procedure Details Procedure Details: Procedure note and vascular access: After informed consent was obtained, risks, benefits, complications, and alternatives were discussed in details with patient who agrees other procedure done. At the beginning of the procedure, the right wrist in the right groin Gupta prepped and draped with the regular sterile fashion. She received conscious sedation by a given 25 mcg of fentanyl as well as 1 mg of IV midazolam. He received a total of 2 cc of 1% xylocaine to the right wrist area an attempt right radial access had failed due to severe vasospasm difficult to thread the wire. Severe was admitted vascular access was switched to the right femoral artery. Under ultrasound guidance, we are able to identify the common femoral artery on the right side, this was punctured under ultrasound guidance with micropuncture needle followed by placement of five Guyanese sheath before it was exchanged for a six Guyanese sheath over the wire using with a false a digital technique without difficulty. Confirmation of the position was obtained using cine femoral angiography. Which confirmed the puncture site above the bifurcation. Pre shaped catheter of Vear left, as with a Vera right were used, did they were exchanged for a multipurpose guiding catheter as well as a Vera left guiding catheter for the right and left coronary system respectively. Findings were as follows: 1. Selective right and left coronary angiogram utilizing right femoral artery: 1. Right carotid with comes off the right coronary cusp has a vertical takeoff, making it difficult to be engaged with distal right catheter, for the purpose of angioplasty we used a multipurpose MPA one guiding catheter. Right coronary artery is large ectatic it is dominant system it has proximal to mid total occlusion. Likely the culprit with the patient presentation. 2. Left main comes off the left coronary cusp is short and largest bifurcates until large with a heated descending artery as well as medium sized lymphs a complex vessel. The left main is free of any significant atherosclerotic plaquing. 3. The left anterior descending without GH large vessel two large diagonal branches, I its proximal thigh that is tight focal 90% stenosis. There is no other significant disease noted in the LAD territory. 4. The left circumflex system is medium to large in size likely a codominant system it gives rise to two obtuse marginal branches as well as small posterolateral branches, it has mild atherosclerotic plaquing in its proximal bed without significant stenosis. \ Primary PCI to the right coronary artery: The Vera right gain ox did catheter was exchanged for a multipurpose MPA one guiding catheter, after engaging the right coronary ostium, we are able to float a C-arm blue wire with some difficulty, as the vessel is very tortuous. Finally we opted to switch to choice PT extra-support wire, following which we will place a 2nd C-arm blue wire then were able to dilate the lesion multiple goal times using 2.25 x 15 semi compliant balloon all the way to 12 atmospheric pressure in at least three different spots. With the re-establishment of DANAY one flow. From DANAY 0 flow. However we could not advance manual thrombectomy devices including penumbra an export catheter, finally we used intra-arterial Integrilin administration with some help to restore flow. Before we stented the lesion using the 0.5 x 30 drug-eluting stents. Excellent final result is achieved with DANAY three flow. Stage PCI to the left anterior descending proximal to mid lesion the same set up : After finishing the artery occlusion and placement of stents successfully, I want dentition was drawn to the proximal to mid left anterior descending artery stenosis I Vera left guiding catheter was used, the same serum no wire was used to engage the left system, it was pre-dilated using 2.25 x 15 balloon and then stented using 3.5 x 15 drug-eluting stent with excellent final result. Cine Angiography to the femoral artery on the right side: With the valve the position of the right femoral arteriotomy site Barker Angiography with shows that the puncture site is above the bifurcation Six Guyanese Angio-Seal closure to the right femoral arteriotomy site: It was difficult to advance the Angio-Seal over a regular wire, a two severe pannus and obesity, we then opted to use a dilator and stiff Amplatzer wire with a floppy tip was used for Angio-Seal six Guyanese system was advanced with successful placement of the vascular blood with good hemostasis and minimal complication. Antiplatelet and anticoagulation during the procedure: Patient receive a loading dose of 600 Plavix, in addition to us as a dual mg of aspirin, it received bivalirudin continuous intravenous infusion during the procedure for anticoagulation, receive Integrilin as a bail-out intra-arterially due to large clot burden. Impression and plan: 1.Subacute presentation of a tooth inferior ST-elevation myocardial infarction, with successful implantation of single drug-eluting stent to the proximal right coronary artery. 2. Staged PCI to the left anterior descending artery with single drug-eluting stent. 3. Patient would need aggressive medical therapy with statins to achieve LDL target of less than 50 mg/dL addition to dual antiplatelet therapy long-term. 4. An echocardiogram it is essential to assess left ventricular systolic function and to proceed with GDMT Condition Good Dominance Dominance: Co-dominant DANAY DANAY Flow: Post- Intervention (DANAY-3), Pre-Intervention (DANAY-0) Lesion Lesion Complexity: High/C Residual Stenosis post procedu: 0% Disposition JOCELIN HERNANDEZ MD Sep 05, 2024 23:37
[2024-09-05 23:45] VITALS: BP 127/91; PULSE 78; RESP 21; O2SAT 97
[2024-09-06] VITALS (18 sets, daily range): BP systolic 104–137; BP diastolic 64–96; PULSE 75–96; RESP 15–20; TEMP 97.6–98.5; O2SAT 93–98
[2024-09-06] MEDS ORDERED: NITROGLYCERIN 0.4 MG SL TAB SL PRN (00:30)
[2024-09-06] MEDS ORDERED: MORPHINE SULFATE INJ 2 MG/ml SYRG IV PRN (00:30)
[2024-09-06] MEDS: SODIUM CHLORIDE 0.9% 1,000 ML IV ONE (00:58)
[2024-09-06] MEDS ORDERED: ONDANSETRON HCL 4 MG/2 ML VIAL IV PRN (04:00)
[2024-09-06 06:24] LABS: Urine Bacteria None Seen /hpf (None Seen); Urine Blood Negative /uL (Negative); Urine Clarity Clear (Clear); Urine Color Light-Yellow (Yellow); Urine Protein, UAD Negative (Negative); Urine Specific Gravity 1.032 (1.001-1.035); Urine Urobilinogen Normal (Negative); Urine WBC <1 /hpf (0 - 3); Urine pH 6.5 (5.0-9.0)
[2024-09-06] MEDS ORDERED: hydrALAZINE HCL 20 MG/ML VL IV PRN (08:30)
[2024-09-06] MEDS: ASPirin 81 mg TAB PO SCH (08:58)
[2024-09-06] MEDS: CLOPIDOGREL BISULFATE 75 MG TAB PO SCH (08:58)
[2024-09-06] MEDS: METOPROLOL SUCCINATE XL 50 MG TAB PO SCH (08:58)
[2024-09-06] MEDS: NICOTINE 14 MG/24HR TOPICAL PATCH TD SCH (08:59)
[2024-09-06 09:43] LABS: Basophils # (auto) 0 10 ^3/uL (0-0.2); Basophils % (auto) 0.1 % (0.0-2.0); Eosinophils # (auto) 0 10 ^3/uL (0-0.8); Hematocrit 42.1 % (41.0-53.0); Hemoglobin 13.9 g/dL (13.5-17.5); Lymphocytes # (auto) 0.9 10 ^3/uL (0.4-5.4); Lymphocytes % (auto) 9.3 % (10.0-50.0); Mean Corpuscular Hemoglobin 30.3 pg (28.0-32.0); Mean Corpuscular Volume 91.7 fL (80.0-100.0); Monocytes # (auto) 0.2 10 ^3/uL (0-1.3); Monocytes % (auto) 2.5 % (0.0-12.0); Neutrophils # (auto) 8.1 10 ^3/uL (1.6-8.6); Neutrophils % (auto) 88.1 % (37.0-80.0); Platelet Count (auto) 302 10^3/uL (140-450); Red Blood Cells 4.58 10^6/uL (4.5-5.90); Red Cell Distribution Width 14.1 % (11.8-14.3); White Blood Cell 9.2 10^3/uL (4.4-10.8)
[2024-09-06 09:50] LABS: Alanine Aminotransferase 47 U/L (7-40); Albumin 3.9 g/dL (3.2-4.8); Alkaline Phosphatase 83 U/L (46-116); Anion Gap 5 (5-15); Aspartate Aminotransferase 159 U/L (13-40); BUN/Creatinine Ratio 9.2 (10.0-20.0); Blood Urea Nitrogen 10 mg/dL (9-23); Calcium 9.4 mg/dL (8.7-10.4); Carbon Dioxide 25 mmol/L (20-31); Chloride 107 mmol/L (98-107); Cholesterol 166 mg/dL (< 200); HDL Cholesterol 43 mg/dL (40-59); LDL Cholesterol 119 mg/dL (< 100); Magnesium 1.8 mg/dL (1.6-2.6); Potassium 4.6 mmol/L (3.5-5.1); Sodium 137 mmol/L (136-145); Triglycerides 62 mg/dL (< 150)
[2024-09-06 09:51] LABS: Bilirubin, Total 0.6 mg/dL (0.2-1.0); Total Protein 6.9 g/dL (5.7-8.2)
[2024-09-06 10:00] LABS: Glucose 251 mg/dL (74-106)
[2024-09-06] MEDS ORDERED: ASPirin 81 mg TAB PO SCH (10:00)
--- NOTE | 2024-09-06 10:26 | DVHPN2 ---
Consult Progress Note Date Seen: Sep 06, 2024 Subjective Review of Systems: CVS:Normal, RESPIRATORY:Normal Objective vital signs Vital Sign Date Time Temp Pulse Resp B/P (MAP) Pulse Ox O2 Delivery O2 Flow Rate FiO2 09/06/24 09:00 97.8 93 19 117/69 (85) 98 97.8 09/06/24 01:29 Nasal Cannula* 2 28 Total Intake and Output 09/05/24 09/05/24 09/06/24 15:00 23:00 07:00 Intake Total 700 ml Output Total 1100 ml Balance -400 ml medications Current Medications Medications Dose Ordered Sig/Susannah Route Start Time Stop Time Status Last Admin Dose Admin Nitroglycerin 0.4 mg Q5MINP PRN SL 09/06/24 00:30 Morphine Sulfate 2 mg Q30M PRN IV 09/06/24 00:30 Ondansetron HCl 4 mg Q4HP PRN IV 09/06/24 04:00 Acetaminophen 650 mg Q6HP PRN PO 09/06/24 04:00 Atorvastatin Calcium 40 mg HS PO 09/06/24 22:00 Clopidogrel Bisulfate 75 mg DAILY PO 09/06/24 10:00 09/06/24 08:58 75 MG Metoprolol Succinate 25 mg DAILY PO 09/06/24 10:00 09/06/24 08:58 25 MG Hydralazine HCl 10 mg Q6HP PRN IV 09/06/24 08:30 Nicotine 1 patch DAILY TD 09/06/24 10:00 09/06/24 08:59 1 PATCH Aspirin 81 mg DAILY PO 09/06/24 10:00 09/06/24 08:58 81 MG Examination: LUNGS:Normal, CVS:Normal, NEURO:Normal laboratory and microbiology Laboratory Tests 09/06/24 09:22 Test 09/06/24 09:22 Range/Units Serum Glucose 251 #H 74-106 mg/dL Problem List/Assessment/Plan Problem List/Assessment/Plan Evolved inferior wall ST-elevation myocardial infarction Coronary artery disease status post PCI to the proximal RCA x 1 CARLA Dyslipidemia, newly diagnosed Family hx of cardiovascular disease Nicotine dependence Sedentary lifestyle Obesity Plan/Recommendation (Dr. Mcclure) * Echocardiogram to evaluate cardiac function * Lipid-lowering agent, beta-carlton, & DAPT with Plavix uninterrupted x 1 year * Smoking cessation consult. 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 Smokes a pack of cigarettes/day * Tobacco use cessation, Mediterranean diet, exercise, weight loss * Regular follow-ups with PCP (last >20 years ago). Follow-up with Cardiology within 1-2 weeks post-discharge * HgbA1C pending Thank you for allowing us to care for this patient. Kindly call with any questions or concerns. Plan discussed with: Patient, Other Date of Service: Sep 06, 2024 Billing Provider: LIMA MCCLURE MD Cardiology Common Codes: [id number] [facility](High [facility] Sep 06, 2024 10:25
[2024-09-06] MEDS: MAGNESIUM OXIDE 400 MG TAB PO ONE (10:54)
--- NOTE | 2024-09-06 11:33 | DVHHP2 ---
History of Present Illness Reason for Visit: chest pain History of Present Illness This is a 54 years old male with past medical history pulmonary embolism come to emergency department because of chest pain for one day. He said his chest pain feels like pressure chest pain in the middle of his chest. The pain is nonradiating. Grade 5 over 10. The patient did not take any medication to relieve the pain syndrome. He also had shortness for breath . The patient feels like he can not breathe. The patient has smoked two pack per day for almost 30 years. EKG in emergency department showed ST elevation on AVF . The patient was brought to the chemical laboratory technician emergently in PCI and one stent was placed on the right coronary artery. When I see the patient after the cardiac catheterization the patient is still complained of chest heaviness and pain. Patient is still complained of minimal shortness for breath. Denied fever, chill. Denied headache, per vision. Denied abdominal pain, constipation, diarrhea. Denied melena or bright red blood per rectum. Denied polyuria, dysur ia, or polyuria. Denied lower extremity edema. Denied nocturnal dyspnea or orthopnea. Pulmonary: Pulmonary embolus Family History: CAD, DM, Other (Colon cancer) Smoke: 2 packs per day ALCOHOL: occassional Drugs: None Lives: with Family Review of Systems Constitutional: No: Fever, Chills, Sweats, Weakness, Malaise, Other Eyes: No: Pain, Vision change, Conjunctivae inflammation, Eyelid inflammation, Other, Redness ENT: No: Ear pain, Ear discharge, Nose pain, Nose discharge, Nose congestion, Mouth pain, Mouth swelling, Throat pain, Throat swelling, Other Respiratory: Shortness of breath; No: Cough, Dry, Wheezing, Hemoptysis, Pleuritic Pain, Sputum, Wheezing, Other Cardiovascular: Chest Pain Gastrointestinal: No: Nausea, Vomiting, Abdominal Pain, Diarrhea, Constipation, Melena, Hematochezia, Other Genitourinary: No Dysuria, No Frequency, No Incontinence, No Hematuria, No Retention, No Other Musculoskeletal: No: other, neck pain, shoulder pain, arm pain, back pain, hand pain, leg pain, foot pain Skin: No: Rash, Lesions, Jaundice, Bruising, Other Neurological: No: Weakness, Numbness, Incoordination, Change in speech, Confusion, Seizures, Other Allergies: Coded Allergies: NO KNOWN ALLERGIES (Unverified , 01/11/18) Medications Current Medications Medications Dose Ordered Sig/Susannah Route Start Time Stop Time Status Last Admin Dose Admin Nitroglycerin 0.4 mg Q5MINP PRN SL 09/06/24 00:30 Morphine Sulfate 2 mg Q30M PRN IV 09/06/24 00:30 Ondansetron HCl 4 mg Q4HP PRN IV 09/06/24 04:00 Acetaminophen 650 mg Q6HP PRN PO 09/06/24 04:00 Atorvastatin Calcium 40 mg HS PO 09/06/24 22:00 Clopidogrel Bisulfate 75 mg DAILY PO 09/06/24 10:00 09/06/24 08:58 75 MG Metoprolol Succinate 25 mg DAILY PO 09/06/24 10:00 09/06/24 08:58 25 MG Hydralazine HCl 10 mg Q6HP PRN IV 09/06/24 08:30 Nicotine 1 patch DAILY TD 09/06/24 10:00 09/06/24 08:59 1 PATCH Aspirin 81 mg DAILY PO 09/06/24 10:00 09/06/24 08:58 81 MG Exam Vital Signs Vital Signs Date Time Temp Pulse Resp B/P (MAP) Pulse Ox O2 Delivery O2 Flow Rate FiO2 09/06/24 09:00 97.8 93 19 117/69 (85) 98 97.8 09/06/24 01:29 Nasal Cannula* 2 28 General Appearance: Alert, Oriented X3, Cooperative HEENT: Atraumatic, PERRLA, EOMI, Mucous membr. moist/pink Respiratory: Clear to auscultation, Normal air movement Cardiovascular: Regular rate, Normal S1, Normal S2, No murmurs, Gallops, Rubs Abdominal: Normal bowel sounds, Soft, No tenderness, No hepatospenomegaly Extremities: No clubbing, No cyanosis, No edema, Normal pulses, No tenderness/swelling Skin: No rashes, No significant lesion Neuro: Strength at 5/5 X4 ext, Cranial nerves 3-12 NL Psych/Mental Status: Mental status NL Labs/Xrays Labs Test 09/06/24 09:22 09/06/24 05:45 09/05/24 21:00 09/05/24 20:46 Range/Units White Blood Count 9.2 4.4-10.8 10^3/uL Red Blood Count 4.58 4.5-5.90 10^6/uL Hemoglobin 13.9 13.5-17.5 g/dL Hematocrit 42.1 # 41.0-53.0 % Mean Corpuscular Volume 91.7 80.0-100.0 fL Mean Corpuscular Hemoglobin 30.3 28.0-32.0 pg Mean Corpuscular Hemoglobin Concent 33.0 32.0-36.0 g/dL Red Cell Distribution Width 14.1 11.8-14.3 % Platelet Count 302 140-450 10^3/uL Mean Platelet Volume 7.1 6.9-10.8 fL Neutrophils (%) (Auto) 88.1 H 37.0-80.0 % Lymphocytes (%) (Auto) 9.3 L 10.0-50.0 % Monocytes (%) (Auto) 2.5 0.0-12.0 % Eosinophils (%) (Auto) 0.0 0.0-7.0 % Basophils (%) (Auto) 0.1 0.0-2.0 % Neutrophils # (Auto) 8.1 1.6-8.6 10 ^3/uL Lymphocytes # (Auto) 0.9 0.4-5.4 10 ^3/uL Monocytes # (Auto) 0.2 0-1.3 10 ^3/uL Eosinophils # (Auto) 0 0-0.8 10 ^3/uL Basophils # (Auto) 0 0-0.2 10 ^3/uL Nucleated Red Blood Cells 0.0 % Sodium Level 137 136-145 mmol/L Potassium Level 4.6 3.5-5.1 mmol/L Chloride Level 107 98-107 mmol/L Carbon Dioxide Level 25 20-31 mmol/L Anion Gap 5 5-15 Blood Urea Nitrogen 10 9-23 mg/dL Creatinine 1.09 0.700-1.30 mg/dL Glomerular Filtration Rate Calc 81 >90 mL/min BUN/Creatinine Ratio 9.2 L 10.0-20.0 Serum Glucose 251 #H 74-106 mg/dL Hemoglobin A1c 5.5 <5.7 % A1C Calcium Level 9.4 8.7-10.4 mg/dL Magnesium Level 1.8 1.6-2.6 mg/dL Total Bilirubin 0.6 0.2-1.0 mg/dL Aspartate Amino Transferase (AST) 159 H 13-40 U/L Alanine Aminotransferase (ALT) 47 H 7-40 U/L Alkaline Phosphatase 83 46-116 U/L Total Protein 6.9 5.7-8.2 g/dL Albumin 3.9 3.2-4.8 g/dL Triglycerides Level 62 < 150 mg/dL Cholesterol Level 166 < 200 mg/dL LDL Cholesterol 119 H < 100 mg/dL HDL Cholesterol 43 40-59 mg/dL Thyroid Stimulating Hormone (TSH) 0.27 L 0.55-4.78 uIU/mL Urine Color Light-yellow Yellow Urine Clarity Clear Clear Urine pH 6.5 5.0-9.0 Urine Specific [place] 1.032 1.001-1.035 Urine Protein Negative Negative Urine Ketones Negative Negative Urine Blood Negative Negative /uL Urine Nitrite Negative Negative Urine Bilirubin Negative Negative Urine Urobilinogen Normal Negative mg/dL Urine Leukocyte Esterase Negative Negative /uL Urine RBC 1 0 - 3 /hpf Urine WBC <1 0 - 3 /hpf Urine Squamous Epithelial Cells None seen <5 /hpf Urine Bacteria None seen None Seen /hpf Urine Glucose Normal Normal mg/dL Prothrombin Time 9.9 9.3-11.8 sec Prothrombin Time INR 0.93 0.9-1.15 Activated Partial Thromboplast Time 28.0 24.5-34.5 SEC Troponin I High Sensitivity 77033 *H </=54 ng/L B-Type Natriuretic Peptide 166.64 0-100 pg/mL Assessment/Plan Assessment/Plan Acute ST-elevation AL Coronary artery disease status post one stent in the right coronary artery Chest pain syndrome Tobacco abuse Family history of coronary artery disease The patient will be admitted to telemetry. The patient will be starting on Lipitor 40 mg p.o. q.day. The patient also be started on metoprolol 25 mg once per day. The patient also we will be on aspirin 81 mg one per day. Smoking sensation and counseled was done by me more than 15 minutes Patient's family have history of diabetes and also colon cancer. Advised the patient to discuss with his primary care physician for appropriate screening such as colonoscopy and hemoglobin A1c.. Plan discussed with: Patient Date of Service: Sep 06, 2024 Billing Provider: NUNO CHAVEZ MD Common Visit Codes: [id number] INP/OBS CARE (HIGH) NUNO CHAVEZ MD Sep 06, 2024 11:33
--- NOTE | 2024-09-06 15:21 | DVHSR ---
APPROVED REPORT EXAM: Two-dimensional and M-mode echocardiogram with Doppler and color Doppler. Blood Pressure: 132/85 mmHg INDICATION Chest Pain RISK FACTORS Height: 67, Weight: 238 DIMENSIONS LVDd4.5 (3.8-5.7cm)LA (2D)3.9 (1.9-4.0cm)Aortic Root3.6 (2.0-3.7cm) LVDs3.3 (2.5-4.0cm)LA (MM) (1.9-4.0cm)Aortic Cusp Exc2.0 (1.5-2.0cm) EF (%) 54.0 (55-70%)Rt. Atrium4.4 (1.9-4.0cm)Asc. Aorta cm IVSd1.4 (0.7-1.1cm)RV (D) (1.8-2.4cm) PWd1.4 (0.7-1.1cm) Mitral Valve MitralMitral Stenosis E wave0.45m/sMV Mean GR.mmHg A wave0.66m/sMV Peak GR.mmHg E/A ratio0.72D MVAcm2 DECEL [id number] 1/2 [id number] IVRTmsDop MVA2.27cm2 Aortic Valve Aortic ValveAortic Stenosis V11.15m/Kirti Mean GR.4mmHg V21.47m/Kirti Peak GR.9mmHg LVOT Diameter2.3 (1.8-2.4cm)Doppler AVA3.25cm2 Pulmonic Valve V20.79m/s Other Information Technically limited study due to body habitus and patient position. Conclusion Normal left ventricular size and dimension. Normal left ventricular systolic function estimated ejec tion fraction of 50%. There is a grade 1 diastolic dysfunction. Normal right ventricular size and dimension. Normal right ventricular systolic function. Normal biatrial size and dimension. Normal aortic valve structure and function. Normal mitral valve structure and function. Normal tricuspid valve structure and function. The pulmonary valve is grossly normal. No pericardial effusion.
[2024-09-06] MEDS: ACETAMINOPHEN 325 MG TAB PO PRN (20:27)
[2024-09-06] MEDS: ATORVASTATIN 20 MG TAB PO SCH (21:09)
[2024-09-06] MEDS ORDERED: ATORVASTATIN 20 MG TAB PO SCH (22:00)
[2024-09-07 00:58] VITALS: BP 128/76; PULSE 88; RESP 18; TEMP 98.4; O2SAT 96
[2024-09-07 05:00] VITALS: BP 108/69; PULSE 80; RESP 17; TEMP 98.3; O2SAT 93
[2024-09-07 07:32] LABS: Basophils # (auto) 0 10 ^3/uL (0-0.2); Basophils % (auto) 0.4 % (0.0-2.0); Eosinophils # (auto) 0 10 ^3/uL (0-0.8); Eosinophils % (auto) 0.3 % (0.0-7.0); Hematocrit 43.1 % (41.0-53.0); Hemoglobin 13.9 g/dL (13.5-17.5); Lymphocytes # (auto) 3.3 10 ^3/uL (0.4-5.4); Mean Corpuscular Hemoglobin 29.5 pg (28.0-32.0); Mean Corpuscular Hgb Conc. 32.3 g/dL (32.0-36.0); Mean Corpuscular Volume 91.3 fL (80.0-100.0); Monocytes % (auto) 8.5 % (0.0-12.0); Neutrophils % (auto) 61.8 % (37.0-80.0); Nucleated Red Blood Cells % 0.1 %; Platelet Count (auto) 327 10^3/uL (140-450); Red Blood Cells 4.72 10^6/uL (4.5-5.90); Red Cell Distribution Width 14.3 % (11.8-14.3); White Blood Cell 11.4 10^3/uL (4.4-10.8)
[2024-09-07 07:54] LABS: Alanine Aminotransferase 39 U/L (7-40); Alkaline Phosphatase 75 U/L (46-116); Anion Gap 3 (5-15); Aspartate Aminotransferase 95 U/L (13-40); Bilirubin, Total 0.5 mg/dL (0.2-1.0); Blood Urea Nitrogen 14 mg/dL (9-23); Calcium 9.6 mg/dL (8.7-10.4); Carbon Dioxide 31 mmol/L (20-31); Chloride 106 mmol/L (98-107); Glucose 87 mg/dL (74-106); Potassium 4.2 mmol/L (3.5-5.1); Sodium 140 mmol/L (136-145)
[2024-09-07 08:00] VITALS: PULSE 72
[2024-09-07 09:29] VITALS: BP 114/81; PULSE 84; RESP 20; TEMP 97.7; O2SAT 96
[2024-09-07] MEDS ORDERED: CLOP75TA70 PO (10:20)
[2024-09-07] MEDS ORDERED: ASPI-325 PO (10:20)
[2024-09-07] MEDS ORDERED: ATOR20TA50 PO (10:20)
[2024-09-07] MEDS ORDERED: METO-6 PO (10:20)
--- NOTE | 2024-09-07 10:27 | DVHPN2 ---
Consult Progress Note Date Seen: Sep 07, 2024 Subjective Review of Systems: CVS:Normal, RESPIRATORY:Normal, NEURO:Normal Objective vital signs Vital Sign Date Time Temp Pulse Resp B/P (MAP) Pulse Ox O2 Delivery O2 Flow Rate FiO2 09/07/24 09:29 97.7 84 20 114/81 (92) 96 97.7 09/07/24 08:00 Nasal Cannula* 2 28 Total Intake and Output 09/06/24 09/06/24 09/07/24 15:00 23:00 07:00 Intake Total 300 ml 600 ml 450 ml Balance 300 ml 600 ml 450 ml medications Current Medications Medications Dose Ordered Sig/Susannah Route Start Time Stop Time Status Last Admin Dose Admin Nitroglycerin 0.4 mg Q5MINP PRN SL 09/06/24 00:30 Morphine Sulfate 2 mg Q30M PRN IV 09/06/24 00:30 Ondansetron HCl 4 mg Q4HP PRN IV 09/06/24 04:00 Acetaminophen 650 mg Q6HP PRN PO 09/06/24 04:00 09/06/24 20:27 650 MG Atorvastatin Calcium 40 mg HS PO 09/06/24 22:00 09/06/24 21:09 40 MG Clopidogrel Bisulfate 75 mg DAILY PO 09/06/24 10:00 09/07/24 09:03 75 MG Metoprolol Succinate 25 mg DAILY PO 09/06/24 10:00 09/07/24 09:03 25 MG Hydralazine HCl 10 mg Q6HP PRN IV 09/06/24 08:30 Nicotine 1 patch DAILY TD 09/06/24 10:00 09/07/24 09:03 1 PATCH Aspirin 81 mg DAILY PO 09/06/24 10:00 09/07/24 09:03 81 MG Examination: LUNGS:Normal, CVS:Normal, NEURO:Normal laboratory and microbiology Laboratory Tests 09/07/24 06:46 Test 09/07/24 06:46 Range/Units Serum Glucose 87 # 74-106 mg/dL Problem List/Assessment/Plan Problem List/Assessment/Plan Evolved inferior wall ST-elevation myocardial infarction Coronary artery disease status post PCI to the proximal RCA x 1 CARLA and LAD x 1 CARLA Dyslipidemia, newly diagnosed Family hx of cardiovascular disease Nicotine dependence Sedentary lifestyle Obesity Plan/Recommendation (Dr. Mcclure) * Echocardiogram revealed EF 50% * Lipid-lowering agent, beta-carlton, & DAPT with Plavix uninterrupted x 1 year * Smoking cessation consult. 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 Smokes a pack of cigarettes/day * Tobacco use cessation, Mediterranean diet, exercise, weight loss * Regular follow-ups with PCP (last >20 years ago). Follow-up with Cardiology within 1-2 weeks post-discharge Patient adamant to be discharged given truck arrangement issues and pet being taken to an animal long-term. Medications sent to pharmacy for urgent delivery at bedside. Strongly counseled on importance of medical therapy compliance. Agrees to stay until medications are delivered. There is no further cardiac work-up indicated at this time. Kindly call in need of further follow-up. Thank you for allowing us to care for this patient. This medical document was created using an electronic medical record system with voice recognition software and computerized dictation system. Although this document has been carefully reviewed, there might still be some phonetic and typographical errors. Occasional wrong-word or ``sound-alike substitutions may have occurred due to the inherent limitations of voice recognition software. These areas are purely typographical due to imperfections of the software programs and do not reflect any compromise in the patient's medical care. Please read the chart carefully and recognize, using context, where these substitutions have occurred. Plan discussed with: Patient, Other Date of Service: Sep 07, 2024 Billing Provider: LIMA MCCLURE MD Cardiology Common Codes: [id number] INP/OBS CARE(Mod) [facility] Sep 07, 2024 10:27
--- NOTE | 2024-09-07 13:46 | DVHDS2 ---
Discharge Summary Date of Admission Sep 06, 2024 at 00:22 Date of Discharge: Sep 07, 2024 Labs/Diagnostic Data: Laboratory Results Test 09/07/24 06:46 09/06/24 09:22 09/06/24 05:45 09/05/24 21:00 White Blood Count 11.4 10^3/uL (4.4-10.8) Red Blood Count 4.72 10^6/uL (4.5-5.90) Hemoglobin 13.9 g/dL (13.5-17.5) Hematocrit 43.1 % (41.0-53.0) Mean Corpuscular Volume 91.3 fL (80.0-100.0) Mean Corpuscular Hemoglobin 29.5 pg (28.0-32.0) Mean Corpuscular Hemoglobin Concent 32.3 g/dL (32.0-36.0) Red Cell Distribution Width 14.3 % (11.8-14.3) Platelet Count 327 10^3/uL (140-450) Mean Platelet Volume 7.2 fL (6.9-10.8) Neutrophils (%) (Auto) 61.8 % (37.0-80.0) Lymphocytes (%) (Auto) 29.0 % (10.0-50.0) Monocytes (%) (Auto) 8.5 % (0.0-12.0) Eosinophils (%) (Auto) 0.3 % (0.0-7.0) Basophils (%) (Auto) 0.4 % (0.0-2.0) Neutrophils # (Auto) 7.0 10 ^3/uL (1.6-8.6) Lymphocytes # (Auto) 3.3 10 ^3/uL (0.4-5.4) Monocytes # (Auto) 1.0 10 ^3/uL (0-1.3) Eosinophils # (Auto) 0 10 ^3/uL (0-0.8) Basophils # (Auto) 0 10 ^3/uL (0-0.2) Nucleated Red Blood Cells 0.1 % Sodium Level 140 mmol/L (136-145) Potassium Level 4.2 mmol/L (3.5-5.1) Chloride Level 106 mmol/L (98-107) Carbon Dioxide Level 31 mmol/L (20-31) Anion Gap 3 (5-15) Blood Urea Nitrogen 14 mg/dL (9-23) Creatinine 1.00 mg/dL (0.700-1.30) Glomerular Filtration Rate Calc 90 mL/min (>90) BUN/Creatinine Ratio 14.0 (10.0-20.0) Serum Glucose 87 mg/dL (74-106) Calcium Level 9.6 mg/dL (8.7-10.4) Total Bilirubin 0.5 mg/dL (0.2-1.0) Aspartate Amino Transferase (AST) 95 U/L (13-40) Alanine Aminotransferase (ALT) 39 U/L (7-40) Alkaline Phosphatase 75 U/L (46-116) Total Protein 7.0 g/dL (5.7-8.2) Albumin 4.0 g/dL (3.2-4.8) Hemoglobin A1c 5.5 % A1C (<5.7) Magnesium Level 1.8 mg/dL (1.6-2.6) Triglycerides Level 62 mg/dL (< 150) Cholesterol Level 166 mg/dL (< 200) LDL Cholesterol 119 mg/dL (< 100) HDL Cholesterol 43 mg/dL (40-59) Thyroid Stimulating Hormone (TSH) 0.27 uIU/mL (0.55-4.78) Urine Color Light-yellow (Yellow) Urine Clarity Clear (Clear) Urine pH 6.5 (5.0-9.0) Urine Specific [place] 1.032 (1.001-1.035) Urine Protein Negative (Negative) Urine Ketones Negative (Negative) Urine Blood Negative /uL (Negative) Urine Nitrite Negative (Negative) Urine Bilirubin Negative (Negative) Urine Urobilinogen Normal mg/dL (Negative) Urine Leukocyte Esterase Negative /uL (Negative) Urine RBC 1 /hpf (0 - 3) Urine WBC <1 /hpf (0 - 3) Urine Squamous Epithelial Cells None seen /hpf (<5) Urine Bacteria None seen /hpf (None Seen) Urine Glucose Normal mg/dL (Normal) Prothrombin Time 9.9 sec (9.3-11.8) Prothrombin Time INR 0.93 (0.9-1.15) Activated Partial Thromboplast Time 28.0 SEC (24.5-34.5) Test 09/05/24 20:46 Troponin I High Sensitivity 89270 ng/L (</=54) B-Type Natriuretic Peptide 166.64 pg/mL (0-100) Other Laboratory Tests 09/07/24 06:46 Brief Hx & Hospital Course: pt left AMA while receiving care Condition at Discharge: Good Final Diagnosis/Problems List Patient has totally occluded proximal to mid right coronary artery. Lightheaded coupled with the patient presentation. Patient underwent primary PCI of the right coronary artery with single drug-eluting stent. Procedure was very challenging due to vertical takeoff of the right coronary artery with stents have tortuosity. Multiple guiding catheter exchanges were made we had difficulty advancing the. Number as well as the med with lobectomy catheters eventually we will angiogram on intracoronary to try to reduce thrombus burden. Finally patient was successfully stented using 3.5 x 38 drug-eluting stent with excellent final result. Patient has also a staged procedure that was done at the same set up you to severe tight stenosis of proximal LAD single stent of the 5 x 15 was used with excellent final result. Discharge Disposition: Discharge Statement: "Patient was advised to return to the ER or call 911 if any headaches, dizziness, shortness of breath, chest pain, abdominal pain, bleeding, fevers, or worsening of medical condition. Patient was counseled about treatment plan, medications, possible side effects, patientverbalized understanding. All questions were answered to the best of my ability. This discharge took greater then 30 minutes in planning, reviewing documentation, counseling the patient, and discussing with other team members." ASSESSMENT ASSESSMENT Assessment Patient has totally occluded proximal to mid right coronary artery.Lightheaded coupled with the patient presentation. Patient underwentprimary PCI of the right coronary artery with single drug-eluting stent.Procedure was very challenging due to vertical takeoff of the rightcoronary artery with stents have tortuosity. Multiple guiding catheterexchanges were made we had difficulty advancing the. Number as well asthe med with lobectomy catheters eventually we will angiogram onintracoronary to try to reduce thrombus burden. Finally patient wassuccessfully stented using 3.5 x 38 drug-eluting stent with excellentfinal result. [facility] tight stenosis of proximal LAD single stent ofthe 5 x 15 was used with excellent final result. Date of Service: Sep 07, 2024 Billing Provider: ED CHANG DO Common Visit Codes: 92564-GEM/OBS DISCH DAY >30min ED CHANG DO Sep 07, 2024 13:46
== END 2024-09-07 10:45 | disposition left against medical advice (07) | DRG 321 ==
LOC: ER 20:35 → TELE 09-06 00:22 → TELE-WESTW 09-06 00:58
PROVIDERS: ADMIT Student in an Organized Health Care Education/Training Program; ATTEND Internal Medicine
PROC: 027135Z Dilation of Coronary Artery, Two Arteries with Two Drug-eluting Intraluminal Devices, Percutaneous Approach (ICD-10-PCS; principal; 2024-09-05)
PROC: B44FZZZ Ultrasonography of Right Lower Extremity Arteries (ICD-10-PCS; 2024-09-05)
PROC: B211YZZ Fluoroscopy of Multiple Coronary Arteries using Other Contrast (ICD-10-PCS; 2024-09-05)
PROC: 4A023N7 Measurement of Cardiac Sampling and Pressure, Left Heart, Percutaneous Approach (ICD-10-PCS; 2024-09-05)
PROC: B41FYZZ Fluoroscopy of Right Lower Extremity Arteries using Other Contrast (ICD-10-PCS; 2024-09-05)
DX: I25.10 Atherosclerotic heart disease of native coronary artery without angina pectoris (principal); I21.19 ST elevation (STEMI) myocardial infarction involving other coronary artery of inferior wall; E11.9 Type 2 diabetes mellitus without complications; Z53.29 Procedure and treatment not carried out because of patient's decision for other reasons; F17.210 Nicotine dependence, cigarettes, uncomplicated; E78.5 Hyperlipidemia, unspecified; E66.9 Obesity, unspecified; Z82.49 Family history of ischemic heart disease and other diseases of the circulatory system; Z98.61 Coronary angioplasty status; Z86.711 Personal history of pulmonary embolism; Z83.3 Family history of diabetes mellitus; Z80.0 Family history of malignant neoplasm of digestive organs; Z79.1 Long term (current) use of non-steroidal anti-inflammatories (NSAID); Z79.899 Other long term (current) drug therapy; Z68.27 Body mass index [BMI] 27.0-27.9, adult
CPT/HCPCS: 36415; 71045; 80048; 80053; 80061; 81001; 83036; 83735; 83880; 84443; 84484; 85025; 85610; 85730; 93005; 93306; 99152; C1894; G0378; J2250; Q9967